=== PATIENT | female | born 1995 | race Two or more races ===

== ENCOUNTER 2017-06-11 14:46 | Emergency (ER) | payer OTHER ==
[~2017-06-11] VITALS: Ht 154.9 cm; Wt 56.9 kg
[2017-06-11] MEDS ORDERED: SODIUM CHLORIDE FLUSH 10ML SYR IVF ONE (15:30)
[2017-06-11 15:41] LABS: ASPARTATE AMINO TRANSFERASE 22 U/L (15-37); BLOOD UREA NITROGEN 5 mg/dL (7-18)
[2017-06-11 18:04] VITALS: BP 118/53
== END 2017-06-11 18:06 | disposition home or self-care (01) ==
LOC: ED 15:35
DX: R10.13 Epigastric pain (principal); R11.2 Nausea with vomiting, unspecified; D72.829 Elevated white blood cell count, unspecified; K21.9 Gastro-esophageal reflux disease without esophagitis
CPT/HCPCS: 36415; 76700; 80053; 81003; 83690; 84703; 85025; 99285

== ENCOUNTER 2018-10-24 09:54 | Emergency (ER) | payer OTHER ==
[~2018-10-24] VITALS: Ht 154.9 cm; Wt 61.5 kg
[2018-10-24 11:20] LABS: BASOPHILS # (AUTO) 0.03 x10^3/uL (0-0.1); BASOPHILS % (AUTO) 0 % (0-1); EOSINOPHILS # (AUTO) 0.03 x10^3/uL (0-0.4); EOSINOPHILS % (AUTO) 0 % (1-7); LYMPHOCYTES # (AUTO) 2.96 x10^3/uL (1-3.4); LYMPHOCYTES % (AUTO) 23 % (22-44); MD NO; MEAN CORPUSCULAR HEMOGLOBIN 33.3 pg (27.0-34.8); MEAN CORPUSCULAR HGB CONC 34.1 g/dL (32.4-35.8); MEAN CORPUSCULAR VOLUME 97.5 fL (80-100); MEAN PLATELET VOLUME 7.2 fL (7.4-10.4); MONOCYTES # (AUTO) 0.68 x10^3/uL (0.2-0.8); MONOCYTES % (AUTO) 5 % (2-9); NEUTROPHILS # (AUTO) 9.04 x10^3/uL (1.8-6.8); NEUTROPHILS % (AUTO) 71 % (42-75); PLATELET COUNT 385 x10^3/uL (130-400); RED BLOOD COUNT 4.21 x10^6/uL (3.82-5.3); RED CELL DISTRIBUTION WIDTH 12.9 % (9.6-15.2)
[2018-10-24 11:31] LABS: ALBUMIN 4.1 g/dL (3.4-5.0); ANION GAP 9 mmol/L (5-15); CALCIUM 9.3 mg/dL (8.5-10.1); CHLORIDE 106 mmol/L (98-107); CREATININE 0.69 mg/dL (0.55-1.02)
[2018-10-24 12:31] VITALS: BP 111/69
== END 2018-10-24 12:33 | disposition home or self-care (01) ==
LOC: ED 11:12
DX: O02.1 Missed abortion (principal); Z3A.01 Less than 8 weeks gestation of pregnancy
CPT/HCPCS: 36415; 76801; 80048; 82040; 84702; 85025; 86901; 99284

== ENCOUNTER 2019-12-08 01:35 | Emergency (ER) | payer OTHER ==
[~2019-12-08] VITALS: Ht 154.9 cm; Wt 62.2 kg
[2019-12-08] MEDS ORDERED: [UNRECOGNIZED DRUG - OTHER] (01:40)
[2019-12-08 02:25] LABS: BASOPHILS # (AUTO) 0.02 x10^3/uL (0-0.1); BASOPHILS % (AUTO) 0 % (0-1); EOSINOPHILS # (AUTO) 0.16 x10^3/uL (0-0.4); EOSINOPHILS % (AUTO) 1 % (1-7); LYMPHOCYTES # (AUTO) 3.19 x10^3/uL (1-3.4); LYMPHOCYTES % (AUTO) 24 % (22-44); MD NO; MEAN CORPUSCULAR HGB CONC 33.7 g/dL (32.4-35.8); MEAN CORPUSCULAR VOLUME 97.8 fL (80-100); MEAN PLATELET VOLUME 7.7 fL (7.4-10.4); MONOCYTES # (AUTO) 1.07 x10^3/uL (0.2-0.8); MONOCYTES % (AUTO) 8 % (2-9); NEUTROPHILS # (AUTO) 8.88 x10^3/uL (1.8-6.8); NEUTROPHILS % (AUTO) 67 % (42-75); PLATELET COUNT 332 x10^3/uL (130-400); RED BLOOD COUNT 3.72 x10^6/uL (3.82-5.3); RED CELL DISTRIBUTION WIDTH 12.8 % (9.6-15.2)
[2019-12-08 02:37] LABS: ALANINE AMINOTRANSFERASE 22 U/L (12-78); ALBUMIN 3.2 g/dL (3.4-5.0); ANION GAP 6 mmol/L (5-15); CALCIUM 8.5 mg/dL (8.5-10.1); CHLORIDE 110 mmol/L (98-107); CREATININE 0.61 mg/dL (0.55-1.02)
[2019-12-08 02:40] LABS: ALKALINE PHOSPHATASE 47 U/L (45-117); BILIRUBIN,TOTAL 0.5 mg/dL (0.2-1.0); TOTAL PROTEIN 6.7 g/dL (6.4-8.2)
[2019-12-08 03:30] VITALS: BP 104/64
--- NOTE | 2019-12-08 04:22 | NUR ---
Discharge instructions given. All questions and concerns addressed. Patient ambulatory with a steady gait. Belongings with patient.
== END 2019-12-08 04:23 | disposition home or self-care (01) ==
LOC: ED 04:09
DX: O20.0 Threatened abortion (principal); K21.9 Gastro-esophageal reflux disease without esophagitis; Z3A.12 12 weeks gestation of pregnancy
CPT/HCPCS: 36415; 76801; 80053; 85025; 86901; 99284

== ENCOUNTER 2020-06-14 06:01 | Inpatient (IN) | payer MEDICAID ==
[~2020-06-14] VITALS: Ht 154.9 cm; Wt 71.3 kg
[~2020-06-14 06:01] MED LIST: [UNRECOGNIZED DRUG - OTHER]
[2020-06-14] MEDS ORDERED: OXYTOCIN 30U/ 0.9% NaCL 500ML 500 ML IV ONE (06:34)
[2020-06-14] MEDS ORDERED: OXYTOCIN 30U/ 0.9% NaCL 500ML 500 ML IV PRN (06:34)
[2020-06-14] MEDS ORDERED: D5%-LACTATED RINGERS 1,000 ML IV SCH (06:34)
[2020-06-14] MEDS: LACTATED RINGERS 1,000 ML IV SCH ×2 (06:55→15:36)
[2020-06-14 06:56] LABS: BASOPHILS # (AUTO) 0.04 x10^3/uL (0-0.1); BASOPHILS % (AUTO) 0 % (0-1); EOSINOPHILS # (AUTO) 0.07 x10^3/uL (0-0.4); EOSINOPHILS % (AUTO) 1 % (1-7); LYMPHOCYTES # (AUTO) 2.99 x10^3/uL (1-3.4); LYMPHOCYTES % (AUTO) 25 % (22-44); MD NO; MEAN CORPUSCULAR HEMOGLOBIN 33.4 pg (27.0-34.8); MEAN CORPUSCULAR HGB CONC 33.9 g/dL (32.4-35.8); MEAN PLATELET VOLUME 7.7 fL (7.4-10.4); MONOCYTES # (AUTO) 0.99 x10^3/uL (0.2-0.8); MONOCYTES % (AUTO) 8 % (2-9); NEUTROPHILS # (AUTO) 8.08 x10^3/uL (1.8-6.8); NEUTROPHILS % (AUTO) 66 % (42-75); PLATELET COUNT 305 x10^3/uL (130-400); RED BLOOD COUNT 3.64 x10^6/uL (3.82-5.3); RED CELL DISTRIBUTION WIDTH 13.3 % (9.6-15.2)
[2020-06-14] MEDS ORDERED: ONDANSETRON 2MG/ML, 2ML IVPush PRN (07:00)
[2020-06-14] MEDS ORDERED: MISOPROSTOL 25 MCG TABLET VG PRN (07:00)
[2020-06-14] MEDS ORDERED: CALCIUM CARBONATE 500 MG TAB.CHEW PO PRN (07:00)
[2020-06-14] MEDS ORDERED: TERBUTALINE 1 MG/ML, 1ML SQ PRN (07:00)
[2020-06-14] MEDS ORDERED: FENTANYL PF 100 MCG/2ML IV PRN (07:00)
[2020-06-14] MEDS ORDERED: TERBUTALINE 1 MG/ML, 1ML IVPush PRN (07:00)
[2020-06-14] MEDS ORDERED: FENTANYL PF 100 MCG/2ML IVPush PRN (07:00)
[2020-06-14] MEDS ORDERED: MISOPROSTOL 25 MCG TABLET ONE (07:36)
[2020-06-14] MEDS ORDERED: LIDOCAINE 1%, 20ML ONE (09:27)
[2020-06-14] MEDS ORDERED: MISOPROSTOL 200 MCG TABLET ONE (09:27)
[2020-06-14] MEDS ORDERED: NEWBORN KIT ONE (09:27)
[2020-06-14] MEDS ORDERED: OXYTOCIN 30U/ 0.9% NaCL 500ML 500 ML ONE ×2 (09:28→23:17)
[2020-06-14] MEDS ORDERED: FENTANYL PF 100 MCG/2ML ONE ×2 (13:59→15:08)
[2020-06-14] MEDS ORDERED: FENTANYL/BUPIV./NS/PF 250 ML EPIDCONT SCH (15:03)
[2020-06-14] MEDS ORDERED: LACTATED RINGERS 1,000 ML IV SCH (15:03)
[2020-06-14] MEDS ORDERED: FENTANYL/BUPIV./NS/PF 250 ML EPIDCONT ONE ×2 (15:05→15:08)
[2020-06-14] MEDS ORDERED: BUPIVACAINE 0.25% ONE (15:08)
[2020-06-14] MEDS ORDERED: EPHEDRINE 50 MG/ML, 1ML IVPush PRN (15:30)
[2020-06-14] MEDS ORDERED: LACTATED RINGERS 1,000 ML IVBOLUS PRN (15:30)
[2020-06-14] MEDS ORDERED: NALOXONE 0.4 MG/ML, 1ML IVPush PRN (15:30)
[2020-06-14] MEDS ORDERED: TERBUTALINE 1 MG/ML, 1ML ONE (19:14)
[2020-06-14] MEDS ORDERED: ONDANSETRON 2MG/ML, 2ML IV PRN (23:00)
[2020-06-14] MEDS ORDERED: ACETAMINOPHEN 325 MG TABLET PO PRN (23:00)
[2020-06-14] MEDS ORDERED: IBUPROFEN 800 MG TABLET PO PRN (23:00)
[2020-06-14] MEDS ORDERED: SIMETHICONE 80 MG CHEW TAB PO PRN (23:00)
[2020-06-14] MEDS ORDERED: CARBOPROST TROMETHAMINE 250 MCG/ML, 1ML IM PRN (23:00)
[2020-06-14] MEDS ORDERED: DOCUSATE 100 MG CAPSULE PO PRN (23:00)
[2020-06-14] MEDS ORDERED: METHYLERGONOVINE 0.2 MG/ML IM PRN (23:00)
[2020-06-14] MEDS ORDERED: MISOPROSTOL 200 MCG TABLET PO PRN (23:00)
[2020-06-14] MEDS ORDERED: GLYCERIN ADULT SUPP PR PRN (23:00)
[2020-06-14] MEDS ORDERED: METOCLOPRAMIDE 5 MG/ML, 2ML IV PRN (23:00)
[2020-06-14] MEDS ORDERED: OXYcodone/APAP 5/325MG TABLET PO PRN ×2 (23:00)
[2020-06-14] MEDS ORDERED: BISACODYL 10 MG SUPP PR PRN (23:00)
[2020-06-14] MEDS: OXYTOCIN 30U/ 0.9% NaCL 500ML 500 ML IV SCH (23:22)
[2020-06-15] MEDS ORDERED: IBUPROFEN 600 MG TABLET ONE ×2 (00:35→08:24)
[2020-06-15] MEDS: IBUPROFEN 600 MG TABLET PO PRN ×3 (00:38→15:40)
[2020-06-15 01:00] VITALS: BP 112/56
[2020-06-15 04:42] VITALS: BP 98/56
[2020-06-15 07:12] LABS: MEAN CORPUSCULAR HGB CONC 34.1 g/dL (32.4-35.8); MEAN PLATELET VOLUME 7.9 fL (7.4-10.4); PLATELET COUNT 286 x10^3/uL (130-400); RED BLOOD COUNT 3.15 x10^6/uL (3.82-5.3); RED CELL DISTRIBUTION WIDTH 13.4 % (9.6-15.2)
[2020-06-15 07:35] LABS: MD YES
[2020-06-15 07:36] LABS: <PLATELET ESTIMATE> ADEQUATE; <PLT MORPHOLOGY> NORMAL PLT MORPH; <RBC MORPHOLOGY> NORMAL; BAND#(MANUAL) 0.22 x10^3/uL; BANDS%(MANUAL) 1 % (0-7); LYMPH#(MANUAL) 3.57 x10^3/uL (1-3.4); LYMPHS% (MANUAL) 16 % (22-44); MONOS#(MANUAL) 1.34 x10^3/uL (0.3-2.7); MONOS% (MANUAL) 6 % (2-9); SEG#(MANUAL) 17.17 x10^3/uL (1.8-6.8); SEGS% (MANUAL) 77 % (42-75)
[2020-06-15] MEDS ORDERED: DOCUSATE 100 MG CAPSULE ONE (08:24)
[2020-06-15] MEDS ORDERED: PRENATAL VIT/IRON/FA 1 EACH TABLET ONE (08:24)
[2020-06-15 08:30] VITALS: BP 92/51
[2020-06-15] MEDS ORDERED: PRENATAL VIT/IRON/FA 1 EACH TABLET PO SCH (09:00)
[2020-06-15] MEDS: OXYTOCIN 30U/ 0.9% NaCL 500ML 500 ML IV SCH (09:00)
[2020-06-15 12:30] VITALS: BP 104/67
[2020-06-15] MEDS ORDERED: MEASLES,MUMPS&RUBELLA VACC/PF 0.5 ML SQ-VACC ONE ×2 (15:30→15:37)
[2020-06-15 16:35] VITALS: BP 103/64
[2020-06-15] MEDS ORDERED: IBUP-1222 PO (18:36)
== END 2020-06-15 20:20 | disposition home or self-care (01) | DRG 807 ==
LOC: LDIP 06:01 → 2NE 06-15 01:50 → 2NW 06-15 15:16
PROVIDERS: ADMIT Obstetrics & Gynecology; ATTEND Obstetrics & Gynecology
PROC: 10E0XZZ Delivery of Products of Conception, External Approach (ICD-10-PCS; principal; 2020-06-14)
PROC: 10907ZC Drainage of Amniotic Fluid, Therapeutic from Products of Conception, Via Natural or Artificial Opening (ICD-10-PCS; 2020-06-14)
PROC: 10H07YZ Insertion of Other Device into Products of Conception, Via Natural or Artificial Opening (ICD-10-PCS; 2020-06-14)
PROC: 3E033VJ Introduction of Other Hormone into Peripheral Vein, Percutaneous Approach (ICD-10-PCS; 2020-06-14)
PROC: 3E0P7VZ Introduction of Hormone into Female Reproductive, Via Natural or Artificial Opening (ICD-10-PCS; 2020-06-14)
PROC: 3E0R3BZ Introduction of Anesthetic Agent into Spinal Canal, Percutaneous Approach (ICD-10-PCS; 2020-06-14)
PROC: 00HU33Z Insertion of Infusion Device into Spinal Canal, Percutaneous Approach (ICD-10-PCS; 2020-06-14)
PROC: 0HQ9XZZ Repair Perineum Skin, External Approach (ICD-10-PCS; 2020-06-14)
PROC: 3E0234Z Introduction of Serum, Toxoid and Vaccine into Muscle, Percutaneous Approach (ICD-10-PCS; 2020-06-15)
DX: O70.0 First degree perineal laceration during delivery (principal); Z37.0 Single live birth; Z20.828 Contact with and (suspected) exposure to other viral communicable diseases; Z3A.39 39 weeks gestation of pregnancy; Z23 Encounter for immunization
CPT/HCPCS: 36415; 85025; 86592; 86850; 86900; 87635; G0378; J3010; J3490; J2590; J7120

== ENCOUNTER 2021-07-13 12:01 | Emergency (ER) | payer MEDICAID ==
[~2021-07-13] VITALS: Ht 154.9 cm; Wt 61.0 kg
[~2021-07-13 12:01] MED LIST changes: +IBUP-1222 PO
--- NOTE | 2021-07-13 12:15 | NUR ---
Pt ambulatory from lobby with steady gait and no dyspnea with exertion noted.
--- NOTE | 2021-07-13 13:00 | NUR ---
PA at bedside for exam.
[2021-07-13 13:50] VITALS: BP 113/62
== END 2021-07-13 14:11 | disposition home or self-care (01) ==
LOC: ED 14:03
DX: J30.89 Other allergic rhinitis (principal); K21.9 Gastro-esophageal reflux disease without esophagitis
CPT/HCPCS: 99283